=== PATIENT | female | born 1990 | race Asian ===

== ENCOUNTER 2021-07-15 08:15 | Emergency (ER) | payer OTHER ==
[~2021-07-15] VITALS: Ht 162.6 cm; Wt 72.7 kg
[2021-07-15 08:16] VITALS: BP 141/85
[2021-07-15 09:20] LABS: RSV AMPLIFICATION NEGATIVE (NEGATIVE)
[2021-07-15] MEDS ORDERED: TESS100C PO (11:44)
== END 2021-07-15 11:52 | disposition home or self-care (01) ==
LOC: M ED 08:15
DX: R05.9 Cough, unspecified (principal); R11.10 Vomiting, unspecified

== ENCOUNTER → 2022-02-11 | Outpatient (CLI) | payer OTHER ==
[~2022-02-11] VITALS: Ht 165.1 cm; Wt 91.5 kg
[~2022-02-11] MED LIST: HOME MED LIST COMPLETE! XX SCH; PRENTAB9 PO; TESS100C PO
[2022-02-11 16:37] VITALS: BP 149/64
[2022-02-11 17:04] LABS: HEMATOCRIT 32.3 % (36.0-47.0); HEMOGLOBIN 11.2 g/dl (12.0-15.5); MEAN CORPUSCULAR HEMOGLOBIN 32.1 pg (27.0-33.0); MEAN CORPUSCULAR HGB CONC 34.7 g/dl (32.0-36.5); MEAN CORPUSCULAR VOLUME 92.6 fl (80.0-96.0); PLATELET COUNT, AUTOMATED 226 10^3/uL (150-450); RED BLOOD COUNT 3.49 10^6/uL (4.00-5.40); WHITE BLOOD COUNT 9.4 10^3/uL (4.0-10.0)
[2022-02-11 17:25] VITALS: BP 121/61
[2022-02-11 17:38] LABS: ALBUMIN 2.6 GM/DL (3.2-5.2); ALT/SGPT 16 U/L (12-78); BILIRUBIN,TOTAL 0.2 MG/DL (0.2-1.0); BLOOD UREA NITROGEN 6 MG/DL (7-18); CALCIUM LEVEL 8.6 MG/DL (8.5-10.1); CARBON DIOXIDE LEVEL 22 MEQ/L (21-32); CHLORIDE LEVEL 110 MEQ/L (98-107); CREATININE FOR GFR 0.56 MG/DL (0.55-1.30); GLOMERULAR FILTRATION RATE > 60.0 (>60); GLUCOSE, FASTING 116 MG/DL (70-100); LDH LACTATE DEHYDROGENASE 161 U/L (84-246); POTASSIUM SERUM 3.6 MEQ/L (3.5-5.1); SODIUM LEVEL 141 MEQ/L (136-145)
[2022-02-11 17:45] VITALS: BP 116/58
[2022-02-11 17:48] LABS: APPEARANCE, URINE CLEAR (CLEAR); BACTERIA, URINE AUTO NEGATIVE (NEGATIVE); BILIRUBIN, URINE AUTO NEGATIVE (NEGATIVE); BLOOD, URINE BLOOD NEGATIVE (NEGATIVE); COLOR, URINE YELLOW (YELLOW); GLUCOSE, URINE (UA) AUTO 1+ mg/dL (NEGATIVE); KETONE, URINE AUTO TRACE mg/dL (NEGATIVE); LEUKOCYTE ESTERASE, URINE AUTO NEGATIVE (NEGATIVE); MUCUS, URINE SMALL (NEGATIVE); NITRITE, URINE AUTO NEGATIVE (NEGATIVE); PROTEIN, URINE AUTO NEGATIVE (NEGATIVE); RBC, URINE AUTO 0 /HPF (0-3); SPECIFIC GRAVITY URINE AUTO 1.013 (1.002-1.035); SQUAMOUS EPITHELIAL CELL UR AU 2 /HPF (0-6); UROBILINOGEN, URINE AUTO 0.2 mg/dL (0.0-2.0); WBC, URINE AUTO 0 /HPF (0-3)
[2022-02-11 17:55] LABS: TOTAL PROTEIN,RANDOM URINE 10.7 MG/DL (0.0-12.0)
== END ==
LOC: M LDO 16:07
PROVIDERS: ATTEND Obstetrics & Gynecology
DX: O36.8130 Decreased fetal movements, third trimester, not applicable or unspecified (principal); Z3A.33 33 weeks gestation of pregnancy; O26.893 Other specified pregnancy related conditions, third trimester; R42 Dizziness and giddiness; R03.0 Elevated blood-pressure reading, without diagnosis of hypertension
CPT/HCPCS: 36415; 59025; 76815; 80053; 81001; 82570; 83615; 84156; 85027; G0463

== ENCOUNTER 2022-03-27 23:33 | Inpatient (IN) | payer OTHER ==
[~2022-03-27] VITALS: Ht 165.1 cm; Wt 94.7 kg
[~2022-03-27 23:33] MED LIST changes: -HOME MED LIST COMPLETE! XX SCH
[2022-03-27 23:48] VITALS: BP 146/89
[2022-03-28] VITALS (27 sets, daily range): BP systolic 126–188; BP diastolic 65–98
[2022-03-28] MEDS ORDERED: LACTATED RINGER'S 1000 ML IV STA (00:48)
[2022-03-28 01:15] LABS: HEMATOCRIT 36.7 % (36.0-47.0); HEMOGLOBIN 12.5 g/dl (12.0-15.5); MEAN CORPUSCULAR HGB CONC 34.1 g/dl (32.0-36.5); MEAN CORPUSCULAR VOLUME 91.1 fl (80.0-96.0); PLATELET COUNT, AUTOMATED 203 10^3/uL (150-450); RED BLOOD COUNT 4.03 10^6/uL (4.00-5.40); WHITE BLOOD COUNT 8.3 10^3/uL (4.0-10.0)
[2022-03-28] MEDS: LR 1,000 ML IV SCH ×2 (04:47→10:25)
[2022-03-28] MEDS: PRENATAL VITAMINS CHEWABLE TABLET PO SCH ×2 (09:00→14:06)
[2022-03-28] MEDS ORDERED: OXYTOCIN DRIP 30 UNITS in IV 1 EA IV SCH (09:30)
[2022-03-28] MEDS ORDERED: FENTANYL 2MCG/ML ROPIVACAINE 0.2% IN 0.9% NACL 100ML IVBAG As Ordered ONE (10:08)
[2022-03-28] MEDS ORDERED: NALOXONE INJ 0.4MG/1ML VIAL (J2310 PER 1MG) IV PRN (10:15)
[2022-03-28] MEDS ORDERED: ePHEDrine SULFATE 25 MG/5 ML(5MG/ML) SYRINGE IVP PRN (10:15)
[2022-03-28] MEDS ORDERED: EPIDURAL/PCA KEYS XX PRN (10:15)
[2022-03-28] MEDS ORDERED: FENTANYL/ROPIVACAINE/NACL BAG 100 ML EPIDURAL SCH (10:15)
[2022-03-28] MEDS ORDERED: diphenhydrAMINE 50MG/ML VIAL (J1200) IV PRN (10:15)
[2022-03-28] MEDS ORDERED: ONDANSETRON 4MG 2ML VIAL IV PRN (10:15)
[2022-03-28] MEDS ORDERED: LR 500 ML IV PRN (10:15)
[2022-03-28] MEDS ORDERED: RHOGAM 300 MCG (1500 IU) INJ (J2790) IM SCH (13:35)
[2022-03-28] MEDS ORDERED: IBUPROFEN 600MG TAB PO PRN (13:35)
[2022-03-28] MEDS ORDERED: ANUSOL HC CREAM 30GM TOP PRN (13:35)
[2022-03-28] MEDS ORDERED: METHYLERGONOVINE MALEATE 0.2 MG/ML VIAL (J2210) IM PRN (13:35)
[2022-03-28] MEDS ORDERED: IBUPROFEN 800 MG TAB PO PRN (13:35)
[2022-03-28] MEDS ORDERED: ACETAMINOPHEN TAB 650MG DOSE (2X325MG) PO PRN (13:35)
[2022-03-28] MEDS ORDERED: ACETAMINOPHEN 500 MG TAB PO PRN (13:35)
[2022-03-28] MEDS ORDERED: DIBUCAINE 1% OINTMENT 30GM TOP PRN (13:35)
[2022-03-28] MEDS ORDERED: DOCUSATE SODIUM 100MG CAPSULE PO SCH (21:00)
[2022-03-29 06:00] VITALS: BP 144/71
[2022-03-29] MEDS ORDERED: COLA100C5 PO (07:43)
[2022-03-29] MEDS ORDERED: ACET1TAB55 PO (07:43)
[2022-03-29] MEDS ORDERED: IBUP-1022 PO (07:43)
[2022-03-29 07:49] LABS: HEMATOCRIT 33.6 % (36.0-47.0); HEMOGLOBIN 11.4 g/dl (12.0-15.5); MEAN CORPUSCULAR HEMOGLOBIN 31.6 pg (27.0-33.0); MEAN CORPUSCULAR HGB CONC 33.9 g/dl (32.0-36.5); MEAN CORPUSCULAR VOLUME 93.1 fl (80.0-96.0); PLATELET COUNT, AUTOMATED 222 10^3/uL (150-450); RED BLOOD COUNT 3.61 10^6/uL (4.00-5.40); WHITE BLOOD COUNT 10.4 10^3/uL (4.0-10.0)
[2022-03-29] MEDS: PRENATAL VITAMINS CHEWABLE TABLET PO SCH (08:31)
[2022-03-30] MEDS ORDERED: MEASLES,MUMPS,RUBELLA VACCINE INJ (MMR-II) (90707) SC.IMMUN ONE (09:00)
== END 2022-03-29 16:00 | disposition home or self-care (01) | DRG 805 ==
LOC: M LDO 23:33 → M LDI 03-28 00:49 → M OBS 03-28 15:20
PROVIDERS: ADMIT Obstetrics & Gynecology; ATTEND Obstetrics & Gynecology
PROC: 10E0XZZ Delivery of Products of Conception, External Approach (ICD-10-PCS; principal; 2022-03-28)
DX: O48.0 Post-term pregnancy (principal); Z37.0 Single live birth; U07.1 COVID-19; O98.52 Other viral diseases complicating childbirth; Z3A.40 40 weeks gestation of pregnancy; O69.82X0 Labor and delivery complicated by other cord entanglement, without compression, not applicable or unspecified

== ENCOUNTER 2022-04-02 12:44 | Inpatient (IN) | payer OTHER ==
[~2022-04-02] VITALS: Ht 165.1 cm; Wt 88.0 kg
[2022-04-02] VITALS (30 sets, daily range): BP systolic 124–201; BP diastolic 58–96
[~2022-04-02 12:44] MED LIST changes: +ACET1TAB55 PO; +COLA100C5 PO; +IBUP-1022 PO
[2022-04-02] MEDS ORDERED: MAG Sulf (L&D) 4 GM/100 ML 4 GM in IV 1 EA IV ONE (14:05)
[2022-04-02] MEDS ORDERED: LABETALOL 100MG/20ML VIAL IV STA (14:55)
[2022-04-02] MEDS ORDERED: MAGNESIUM SULFATE 4% INJ 20GM/500ML (40MG/ML) As Ordered ONE (15:16)
[2022-04-02] MEDS ORDERED: MAGNESIUM *L&D* 4GM/100ML BAG (40MG/ML) As Ordered ONE (15:16)
[2022-04-02 15:36] LABS: ALT/SGPT 100 U/L (12-78); BILIRUBIN,TOTAL 0.2 MG/DL (0.2-1.0); GLOMERULAR FILTRATION RATE > 60.0 (>60); LDH LACTATE DEHYDROGENASE 298 U/L (84-246)
[2022-04-02] MEDS ORDERED: LABETALOL 100MG/20ML VIAL IV ONE (17:05)
[2022-04-02] MEDS: MAG Sulf (OBGYN) 20GM/500ML 20,000 MG in IV 1 EA IV SCH (17:11)
[2022-04-02 17:21] LABS: CREATININE,RANDOM URINE 43.9 MG/DL; TOTAL PROTEIN,RANDOM URINE 7.1 MG/DL (0.0-12.0)
[2022-04-02] MEDS: LR 1,000 ML IV SCH (17:35)
[2022-04-02] MEDS: LABETALOL 100MG/20ML VIAL IV SCH ×2 (17:37→18:08)
[2022-04-02 17:46] LABS: APPEARANCE, URINE MANUAL CLEAR (CLEAR); COLOR, URINE MANUAL YELLOW (YELLOW)
[2022-04-02 17:47] LABS: BILIRUBIN, URINE MANUAL NEGATIVE (NEGATIVE); BLOOD URINE MANUAL POSITIVE (NEGATIVE); GLUCOSE, URINE (UA) MANUAL NEGATIVE (NEGATIVE); KETONE, URINE MANUAL 1+ mg/dL (NEGATIVE); LEUKOCYTE ESTERASE, URINE MAN NEGATIVE (NEGATIVE); NITRITE, URINE MANUAL NEGATIVE (NEGATIVE); PROTEIN, URINE MANUAL NEGATIVE (NEGATIVE); SPECIFIC GRAVITY,URINE MANUAL 1.015 (1.002-1.035); UROBILINOGEN, URINE MANUAL NORMAL (NORMAL)
[2022-04-02 18:16] LABS: BACTERIA, URINE NONE SEEN; HYALINE CAST, URINE NONE SEEN /lpf (0-1); SQUAMOUS EPITHELIAL CELL URINE SMALL AMOUNT /hpf (SMALL AMT); WBC, URINE 0-1 /hpf (0-3)
[2022-04-02] MEDS: ACETAMINOPHEN 500 MG TAB PO PRN (18:39)
[2022-04-02] MEDS: LABETALOL 200 MG TAB PO SCH (20:51)
[2022-04-03] VITALS (19 sets, daily range): BP systolic 114–169; BP diastolic 53–80
[2022-04-03] MEDS: ACETAMINOPHEN 500 MG TAB PO PRN ×3 (00:23→21:54)
[2022-04-03] MEDS: MAG Sulf (OBGYN) 20GM/500ML 20,000 MG in IV 1 EA IV SCH ×2 (03:16→13:23)
[2022-04-03] MEDS: LR 1,000 ML IV SCH (06:12)
[2022-04-03 07:01] LABS: HEMATOCRIT 36.9 % (36.0-47.0); HEMOGLOBIN 12.4 g/dl (12.0-15.5); MEAN CORPUSCULAR HEMOGLOBIN 31.2 pg (27.0-33.0); MEAN CORPUSCULAR HGB CONC 33.6 g/dl (32.0-36.5); MEAN CORPUSCULAR VOLUME 92.7 fl (80.0-96.0); PLATELET COUNT, AUTOMATED 314 10^3/uL (150-450); RED BLOOD COUNT 3.98 10^6/uL (4.00-5.40); WHITE BLOOD COUNT 5.4 10^3/uL (4.0-10.0)
[2022-04-03] MEDS: LABETALOL 200 MG TAB PO SCH ×2 (08:25→21:26)
[2022-04-03] MEDS ORDERED: LABE20TAB PO (10:16)
[2022-04-03] MEDS ORDERED: HOME MED LIST COMPLETE! XX SCH (13:30)
[2022-04-04 02:03] VITALS: BP 144/70
[2022-04-04 06:14] VITALS: BP 134/62
[2022-04-04 07:25] LABS: HEMATOCRIT 35.9 % (36.0-47.0); MEAN CORPUSCULAR HEMOGLOBIN 31.2 pg (27.0-33.0); MEAN CORPUSCULAR HGB CONC 33.4 g/dl (32.0-36.5); MEAN CORPUSCULAR VOLUME 93.2 fl (80.0-96.0); PLATELET COUNT, AUTOMATED 327 10^3/uL (150-450); RED BLOOD COUNT 3.85 10^6/uL (4.00-5.40); WHITE BLOOD COUNT 7.3 10^3/uL (4.0-10.0)
[2022-04-04 08:13] VITALS: BP 170/79
[2022-04-04] MEDS: LABETALOL 200 MG TAB PO SCH (08:13)
[2022-04-04 10:00] VITALS: BP 163/79
[2022-04-04] MEDS ORDERED: DIBUCAINE 1% OINTMENT 30GM TOP PRN (10:40)
[2022-04-04] MEDS ORDERED: CEPHALEXIN 500 MG CAP PO ONE (11:00)
[2022-04-04] MEDS: ACETAMINOPHEN 500 MG TAB PO PRN (11:02)
[2022-04-04 15:00] VITALS: BP_SYST 140; BP_SYST 178; BP_DIAS 78; BP_DIAS 92
[2022-04-04 16:38] VITALS: BP 142/88
[2022-04-04] MEDS ORDERED: CEPHALEXIN 500 MG CAP PO SCH (21:00)
== END 2022-04-04 17:15 | disposition home or self-care (01) | DRG 776 ==
LOC: M PCU 14:18 → M LDI 16:48 → M OBS 04-03 15:15
PROVIDERS: ADMIT Obstetrics & Gynecology; ATTEND Obstetrics & Gynecology
DX: O14.15 Severe pre-eclampsia, complicating the puerperium (principal); N39.0 Urinary tract infection, site not specified; B96.20 Unspecified Escherichia coli [E. coli] as the cause of diseases classified elsewhere; O86.20 Urinary tract infection following delivery, unspecified